=== PATIENT | male | born 1955 | race Caucasian/White ===

== ENCOUNTER 2025-02-22 23:55 | Emergency (ER) | payer MEDICARE, SELFPAY ==
[2025-02-23 00:01] VITALS: BP 140/82; PULSE 68; RESP 18; TEMP 36.7; O2SAT 94
[2025-02-23 00:02] VITALS: BP 140/82; PULSE 69; PULSE 78; RESP 16; RESP 19; TEMP 36.7; O2SAT 94; O2SAT 98; BMI 21.9
--- NOTE | 2025-02-23 00:39 | PD.EDADULT ---
ED General RME/HPI General Chief complaint: Psychiatric Symptoms Stated complaint: MENTAL EVAL Time Seen by Provider: 02/23/25 00:15 Arrival date/time: 02/22/25 23:55 RME / HPI RME / HPI narrative: 69-year-old male with past medical history of traumatic brain injury was brought in to the ED by PD after an altercation with his . Patient states that he was arguing with his . We will follow any physical altercation and that his called the police department on him. Patient also stated that he did have a few beers, but denies having any thoughts about any harm to himself or his . Patient states that he does not have any visual or auditory hallucinations at this time. He also mentioned that he does not get any anger bursts where he becomes violent. Patient was pleasant throughout the whole assessment. Denies any chest pain, abdominal pain, shortness of breath, changes in urination, changes in bowel movement, or any nausea or vomiting. Otherwise no other complaints at this time. Admits alcohol and smoking, denies any illicit drugs Related Data Allergies Allergy/AdvReac Type Severity Reaction Status Date / Time No Known Allergies Allergy Verified 04/22/24 19:30 Review of Systems Review of Systems Systems Reviewed: All systems reviewed, normal except as documented Past Medical History Past Medical History Comments PMH COMMENT: PMH: TBI Allergies: NKDA Social: Admits alcohol and smoking, denies illicit drugs ED Exam Narrative Physical exam: Gen: A&O X 3, NAD HEENT: NCAT, EOMI, Pupils reactive GUILLERMO, not icteric. External ears normal. No rhinorrhea. Moist mucous membranes. Neck: Supple, full range of motion, no observable masses, No meningeal sign. Lungs: No Respiratory distress, clear bilateral. CV: RRR, no murmurs. Abdomen: Soft, nondistended, No rebound tenderness. MSK: No joint swelling, no redness, peripheral pulses presents, lumbar with no edema. Skin: No rashes, petechiae, lesions. Abrasion in R elbow with small amount of dry blood. Neuro: No focal neurological deficits appreciated, sensory and motor intact. Psych: Cooperative, appropriate mood and effect. No homicidal or suicidal ideation. No auditory or visual hallucination. Course Quality Measures none Orders Category Date Time Status 1799 Psychiatric Hold NOW Care 02/23/25 01:00 Ordered Wound Care NOW Care 02/23/25 00:59 Active Alcohol, Urine Stat Lab 02/23/25 00:44 Completed Drug Screen,Urine Stat Lab 02/23/25 00:56 Completed UA, C/S IF [Urinalysis, C/S if Indicated] Stat Lab 02/23/25 00:44 Completed DiphenhydrAMINE INJ [Benadryl Inj] Med 02/23/25 02:34 Discontinued 25 mg IM X1 ONE Haloperidol Lactate [Haldol Inj] Med 02/23/25 02:34 Discontinued 10 mg IM X1 ONE Haloperidol Lactate [Haldol Inj] Med 02/23/25 02:34 Discontinued 5 mg IM X1 ONE Vital Signs Vital signs: Vital Signs Temperature 98.0 F 02/23/25 00:01 Pulse Rate 68 02/23/25 00:01 Respiratory Rate 18 02/23/25 00:01 Blood Pressure 140/82 H 02/23/25 00:01 Pulse Oximetry (%) 94 L 02/23/25 00:01 Oxygen Delivery Method Room Air 02/23/25 00:01 Discharge Plan Prescriptions/Referrals Referrals: No Primary/Family,Physician [Primary Care Provider] - In 1 week Problem List Clinical Impression: Acute psychosis Patient/Caregiver Discharge Instructions Print Language: Albanian MDM Narrative MDM hospital course: Patient was seen and evaluated upon arrival by myself. Diagnostic labs were ordered. UA and drug screen were unremarkable. 2: 38: Patient became agitated and wanted to leave the hospital. Try to de-escalate the situation, but patient was being uncooperative stating that he was going to leave. Patient later on agreed to cooperate until evaluated by crisis. Urine alcohol came back positive. Patient remained calm after slight episode of agitation around 2:30 AM. Patient medically cleared to be evaluated by CRISIS team. 6:05: [facility]. Case disclosed with Attending Dr. Acacia Soto PGY2 Disclaimer: Even though this this note was dictated by speech recognition and even though it was carefully revised there may still be minor errors in children teacher due to voice recognition software. Medication Administration(s) Medication Administration History Discontinued Medications Diphenhydramine HCl (Diphenhydramine Inj 50 Mg/Ml Vial) 25 mg IM X1 ONE Stop: 02/23/25 02:35 Last Admin: 02/23/25 03:15 Dose: Not Given Documented By: WO Non-Admin Reason: Discontinued Haloperidol Lactate (Haloperidol Lact Inj 5 Mg/Ml Vial) 10 mg IM X1 ONE Stop: 02/23/25 02:35 Last Admin: 02/23/25 03:15 Dose: Not Given Documented By: WO Non-Admin Reason: Discontinued Haloperidol Lactate (Haloperidol Lact Inj 5 Mg/Ml Vial) 5 mg IM X1 ONE Stop: 02/23/25 02:35 Last Admin: 02/23/25 03:15 Dose: Not Given Documented By: WO Non-Admin Reason: Discontinued
[2025-02-23 01:02] LABS: Collection Type, Urine Clean Catch; Squamous Epithelial Cell,Urine 0 /hpf (0-5)
[2025-02-23 01:24] LABS: Bilirubin,Urine Negative (Negative); Blood,Urine Negative (Negative); Clarity,Urine Clear (Clear/Hazy); Color,Urine Lt-Yellow (Lt Yel-Yel); Culture Indicated,Urine Not Indicated; Glucose, Urine Negative (Negative); Ketones,Urine Negative (Negative); Leukocyte Esterase,Urine Negative (Negative); Nitrite,Urine Negative (Negative); PH,Urine 6.5 (5.0-7.0); Protein,Urine Negative (Neg - Trace); RBC,Urine 1 /hpf (0-3); Specific Gravity,Urine 1.009 (1.001-1.035); Urobilinogen,Urine Negative mg/dL (0.0-1.0); WBC,Urine 1 /hpf (0-5)
[2025-02-23 02:07] LABS: Amphetamine/Methamp Scrn,U Negative (Negative); Barbiturate Screen,Urine Negative (Negative); Benzodiazepines Screen,Urine Negative (Negative); Benzoylecgonine Screen, Ur Negative (Negative); Fentanyl Screen,Urine Negative (Negative); Opiate Screen,Urine Negative (Negative); THC Screen,Urine Negative (Negative)
[2025-02-23 02:49] LABS: Alcohol, Urine Positive (Negative)
[2025-02-23 06:15] VITALS: BP 148/77; PULSE 59; RESP 18; TEMP 36.7; O2SAT 97
--- NOTE | 2025-02-23 07:25 | PC.NURSE ---
0700 Assumed care of patient, patient is sitting up in [facility], no apparent distress noted. Patient is calm, speaking with staff answering questions. Patient denies SI/HI. Patient states only had an argument with . Patient updated with plan of eval by high school social studies tutor. Patient is agreeable.
--- NOTE | 2025-02-23 07:59 | PD.EDADDENDU ---
Emergency Room Addendum Addendum Narrative: 0600: Care assumed from resident Dr. Zeng PGY2. Past medical, surgical, social and family history reviewed. Vitals and home medications reviewed. I will assume the care of the patient at this time, pending mental health evaluation. Please refer to the emergency department record for history and examination from initial visit.?The following addendum documentation note is intended to reflect any pending information, findings, or radiology results not included in the patient?s initial chart. 0815: [employer] worker has evaluated the patient and rescinded the 5150 hold. States patient was provided with resources. Patient has remained stable through ED course and will be discharged home.
--- NOTE | 2025-02-23 08:23 | PC.CC ---
0759-Pt is a 69 yo male presented to the ED on 02/22/2025 on a 5150 hold for danger to self by [facility].. Per the 5150 Hold, patient was placed on hold due to danger to self. ASW-Ana Bernabe met with patient [id number] to complete assessment. ASW introduced self, role, and reason for assessment. ASW disclosed limits of confidentiality as well. Patient appeared alert and oriented to self, place, and situation. Patient was pleasant; his mood appeared pleasant and did not show signs of depression; his behavior appeared calm. Patient?s thought process was linear and organized. No signs of delusions, paranoid or AVH. Pt reported that last night and he and his Saleem [phone] got into a heated verbal argument, which he states often happens. Pt admitted to being intoxicated with alcohol. Pt reported he left the home to cool off and when he returned [employer] was present and brought him here to the hospital. Per the 5150 hold, pt was heard on the 911 call making threats of harming himself by cutting off his arm. Pt admitted to this and stated he was not acutally going to cut off his arm, but was using that to scare his . Pt stated that this is the first time he had ever made such statements. Pt reported that he was drunk and really didn't mean to say that. Pt reported he is willing to go to counseling services as his already has a therapist she is connected to. ASW provided community resources to local [facility] agencies as well as to [facility], as they offer couples therapy. Pt was receptive and accepting of the resources. Pt stated he regrets and is remorseful for trying to scare his . Pt reports he will schedule with [facility]. Pt denies h/o prior MH hospitalization, denies illicit controlled use of drugs, admits to alcohol use/abuse, denies any diagnosis of MH concerns. Pt adamantly denies SI/HI, and states he has no desire to hurt or harm himself. Pt denies firearms in the home. ASW contacted the collateral, spouse Saleem, who confirmed the disclosure. Saleem stated she is willing to take the spouse back home and will plan on couples therapy. ASW staffed with [facility], Director S. Brewster regarding this case and it was agreed that the 5150 Hold will rescinded. ASW reported to the ER provider and the provider agreed to the plan. Assigned RN Pepper is aware.
[2025-02-23 09:20] VITALS: BP 177/76; PULSE 94; RESP 18; TEMP 36.4; O2SAT 97
--- NOTE | 2025-02-23 09:43 | PC.CC ---
0759-Pt is a 69 yo male presented to the ED on 02/22/2025 on a 5150 hold for danger to self by [facility].. Per the 5150 Hold, patient was placed on hold due to danger to self. ASW-Ana Bernabe met with patient [id number] to complete assessment. ASW introduced self, role, and reason for assessment. ASW disclosed limits of confidentiality as well. Patient appeared alert and oriented to self, place, and situation. Patient was pleasant; his mood appeared pleasant and did not show signs of depression; his behavior appeared calm. Patient?s thought process was linear and organized. No signs of delusions, paranoid or AVH. Pt reported that last night and he and his Saleem [phone] got into a heated verbal argument, which he states often happens. Pt admitted to being intoxicated with alcohol. Pt reported he left the home to cool off and when he returned [facility] was present and brought him here to the hospital. Per the 5150 hold, pt was heard on the 911 call making threats of harming himself by cutting off his arm. Pt admitted to this and stated he was not acutally going to cut off his arm, but was using that to scare his . Pt stated that this is the first time he had ever made such statements. Pt reported that he was drunk and really didn't mean to say that. Pt reported he is willing to go to counseling services as his already has a therapist she is connected to. ASW provided community resources to local [facility] agencies as well as to [facility], as they offer couples therapy. Pt was receptive and accepting of the resources. Pt stated he regrets and is remorseful for trying to scare his . Pt reports he will schedule with [facility]. Pt denies h/o prior MH hospitalization, denies illicit controlled use of drugs, admits to alcohol use/abuse, denies any diagnosis of MH concerns. Pt adamantly denies SI/HI, and states he has no desire to hurt or harm himself. Pt denies firearms in the home. ASW contacted the collateral, spouse Saleem, who confirmed the disclosure. Saleem stated she is willing to take the spouse back home and will plan on couples therapy. ASW staffed with [facility], Director S. Brewster regarding this case and it was agreed that the 5150 Hold will rescinded. ASW reported to the ER provider and the provider agreed to the plan. Assigned RN Pepper is aware.
== END 2025-02-23 09:37 | disposition home or self-care (01) ==
PROVIDERS: Emergency Provider Family Medicine
DX: F23 Brief psychotic disorder (principal); F17.200 Nicotine dependence, unspecified, uncomplicated; F10.90 Alcohol use, unspecified, uncomplicated; Z87.820 Personal history of traumatic brain injury
CPT/HCPCS: 80307; 80320; 81001; 96127; 99284; G0480